=== PATIENT | female | born 1975 | race Caucasian/White ===

== ENCOUNTER → 2023-01-27 | Outpatient (CLI) | payer OTHER | LOC: M PLAIMG 07:58 | PROVIDERS: ATTEND Orthopaedic Surgery | DX: M48.56XD Collapsed vertebra, not elsewhere classified, lumbar region, subsequent encounter for fracture with routine healing (principal); Y93.9 Activity, unspecified; Y92.9 Unspecified place or not applicable ==

== ENCOUNTER 2023-03-06 09:07 | Outpatient (RCR) | payer OTHER | END 2023-03-08 | LOC: M PT 09:07 | PROVIDERS: ATTEND Orthopaedic Surgery | DX: M48.56XD Collapsed vertebra, not elsewhere classified, lumbar region, subsequent encounter for fracture with routine healing (principal) | CPT/HCPCS: 97162; G0283 ==

== ENCOUNTER 2023-03-21 15:45 | Outpatient (RCR) | payer OTHER | END 2023-04-06 | LOC: M PT 15:45 | PROVIDERS: ATTEND Orthopaedic Surgery | DX: M48.56XD Collapsed vertebra, not elsewhere classified, lumbar region, subsequent encounter for fracture with routine healing (principal) | CPT/HCPCS: 97110; 97140; G0283 ==

== ENCOUNTER 2023-05-05 14:54 | Outpatient (RCR) | payer OTHER | END 2023-05-07 | LOC: M PT 14:54 | PROVIDERS: ATTEND Orthopaedic Surgery | DX: M54.50 Low back pain, unspecified (principal) | CPT/HCPCS: 97110; 97161; 97530; G0283 ==

== ENCOUNTER 2023-05-19 14:53 | Outpatient (RCR) | payer OTHER | END 2023-06-06 | LOC: M PT 14:53 | PROVIDERS: ATTEND Orthopaedic Surgery | DX: M54.50 Low back pain, unspecified (principal) | CPT/HCPCS: 97110; G0283 ==

== ENCOUNTER → 2023-06-27 | Outpatient (CLI) | payer BC ==
[2023-06-27 16:01] LABS: APPEARANCE, URINE HAZY (CLEAR); BACTERIA, URINE AUTO 1+ (NEGATIVE); BILIRUBIN, URINE AUTO NEGATIVE (NEGATIVE); BLOOD, URINE BLOOD 3+ (NEGATIVE); COLOR, URINE YELLOW (YELLOW); GLUCOSE, URINE (UA) AUTO NEGATIVE (NEGATIVE); KETONE, URINE AUTO NEGATIVE (NEGATIVE); LEUKOCYTE ESTERASE, URINE AUTO 3+ (NEGATIVE); NITRITE, URINE AUTO NEGATIVE (NEGATIVE); PROTEIN, URINE AUTO 1+ mg/dL (NEGATIVE); RBC, URINE AUTO TNTC /HPF (0-3); SQUAMOUS EPITHELIAL CELL UR AU 2 /HPF (0-6); UROBILINOGEN, URINE AUTO 0.2 mg/dL (0.0-2.0); WBC, URINE AUTO 95 /HPF (0-3)
== END ==
LOC: M LAB 15:33
PROVIDERS: ATTEND Physician Assistant
DX: N39.0 Urinary tract infection, site not specified (principal); R31.0 Gross hematuria